=== PATIENT | male | born 2000 | race Caucasian/White ===

== ENCOUNTER 2021-06-13 11:47 | Emergency (ER) | payer SELFPAY ==
[~2021-06-13] VITALS: Ht 175.3 cm; Wt 68.0 kg
[2021-06-13 11:58] VITALS: BP 128/66
[2021-06-13] MEDS ORDERED: LORazepam 1 MG TAB PO ONE (12:05)
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
[2021-06-13 13:24] VITALS: BP 122/62
--- NOTE | 2021-06-13 13:26 | NUR ---
Patient discharged with v/s stable. Written and verbal after care instructions given and explained. Patient alert, oriented and verbalized understanding of instructions. Police with in custody. All questions addressed prior to discharge. ID band removed. Patient advised to follow up with PMD.NO Rx given. Patient educated on indication of medication including possible reaction and side effects. Opportunity to ask questions provided and answered.
== END 2021-06-13 13:26 ==
LOC: MED 11:47
DX: R00.0 Tachycardia, unspecified (principal); F15.90 Other stimulant use, unspecified, uncomplicated; F17.200 Nicotine dependence, unspecified, uncomplicated; F12.90 Cannabis use, unspecified, uncomplicated
CPT/HCPCS: 93005; 99283

== ENCOUNTER 2022-01-02 18:39 | Emergency (ER) | payer MEDICAID ==
[~2022-01-02] VITALS: Ht 175.3 cm; Wt 63.5 kg
--- NOTE | 2022-01-02 18:40 | NUR ---
JEWELS STRONG TAKEN TO BED 11
[2022-01-02 18:44] VITALS: BP 118/78
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
--- NOTE | 2022-01-02 19:20 | NUR ---
Pt report given to JORDON HANSEN. Transfer of care at this time.
--- NOTE | 2022-01-02 19:23 | NUR ---
REPORT GIVEN TO JORDON BOLAND. TRANSFER OF CARE AT THIS TIME
--- NOTE | 2022-01-02 19:30 | NUR ---
RESTING QUIETLY WITH EYES CLOSED. RESPIRATIONS REGULAR AND UNLABORED
--- NOTE | 2022-01-02 20:42 | NUR ---
Dr. Cantu examining patient.
--- NOTE | 2022-01-02 21:26 | NUR ---
PREPARING FOR DISCHARGE. PT [id number] "I DON'T HAVE A HOME" RESOURCES TO BE GIVEN. SANDWICH, JUICE AND WATER GIVEN
[2022-01-02 21:35] VITALS: BP 118/63
--- NOTE | 2022-01-02 21:35 | NUR ---
Patient discharged with v/s stable. Written and verbal after care instructions given and explained. Patient verbalized understanding. Ambulatory with steady gait. All questions addressed prior to discharge. Advised to follow up with PMD.
== END 2022-01-02 21:35 | disposition home or self-care (01) ==
LOC: MED 18:39
DX: T40.601A Poisoning by unspecified narcotics, accidental (unintentional), initial encounter (principal); F19.10 Other psychoactive substance abuse, uncomplicated; Y92.89 Other specified places as the place of occurrence of the external cause
CPT/HCPCS: 99283